=== PATIENT | female | born 1945 | race Caucasian/White ===

== ENCOUNTER 2024-08-22 18:36 | Inpatient (IN) | payer MEDICARE, BC ==
[~2024-08-22] VITALS: Ht 165.1 cm; Wt 93.9 kg
[2024-08-22] MEDS ORDERED: LEVO1CAP4 PO (19:27)
[2024-08-22] MEDS ORDERED: LOSA100T31 PO (19:27)
[2024-08-22] MEDS ORDERED: OMEG-49 PO (19:27)
[2024-08-22] MEDS ORDERED: PRIM50TA27 PO (19:27)
[2024-08-22] MEDS ORDERED: PANT40TA49 PO (19:27)
[2024-08-22] MEDS ORDERED: GLIP5TAB13 PO (19:27)
[2024-08-22] MEDS ORDERED: SIMV-46 PO (19:27)
[2024-08-22] MEDS ORDERED: NITR-84 PO (19:27)
[2024-08-22] MEDS ORDERED: INSU300I SQ (19:27)
[2024-08-22] MEDS ORDERED: ALLO300T2 PO (19:27)
[2024-08-22] MEDS ORDERED: ASPI81TA31 PO (19:27)
[2024-08-22] MEDS ORDERED: SERT50TA PO (19:27)
[2024-08-22] MEDS ORDERED: CHOL2000 PO (19:27)
[2024-08-22] MEDS ORDERED: LEVO200T9 PO (19:27)
[2024-08-22] MEDS ORDERED: MELA3CAP2 PO (19:27)
[2024-08-22] MEDS ORDERED: GALA12TA15 PO (19:27)
[2024-08-22] MEDS ORDERED: DIVA125C5 PO (19:27)
[2024-08-22] MEDS ORDERED: FERR-68 PO (19:27)
[2024-08-22] MEDS ORDERED: METF-440 PO (19:27)
[2024-08-22] MEDS ORDERED: BETA1TAB19 PO (19:27)
[2024-08-22] MEDS ORDERED: FENO145T21 PO (19:27)
[2024-08-22] MEDS ORDERED: RISP0.5T65 PO (19:27)
[2024-08-22] MEDS ORDERED: ASCO500C18 PO (19:27)
[2024-08-22] MEDS ORDERED: LORAZEPAM 2 MG/1 ML VIAL ONE (20:32)
[2024-08-22] MEDS: LORAZEPAM 2 MG/1 ML VIAL IV ONE (20:37)
[2024-08-23] MEDS ORDERED: LORAZEPAM 1 MG TABLET PO PRN (00:15)
[2024-08-23] MEDS ORDERED: ACETAMINOPHEN 325 MG TABLET PO PRN (00:15)
[2024-08-23] MEDS ORDERED: TEMAZEPAM 7.5 MG CAPSULE PO PRN ×2 (00:15)
[2024-08-23] MEDS ORDERED: MAG HYDROX/AL HYDROX/SIMETH 30 ML LIQUID UDC PO PRN (00:15)
[2024-08-23] MEDS ORDERED: MAGNESIUM HYDROXIDE 30 ML LIQUID UDC PO PRN (00:15)
[2024-08-23 00:58] VITALS: BP 156/75; TEMP 97.4; O2SAT 94
[2024-08-23 08:14] VITALS: BP 148/92; TEMP 97.4; O2SAT 94
[2024-08-23] MEDS ORDERED: DEXTROSE 50% 50 ML DISP.SYRIN IV PRN (11:00)
[2024-08-23] MEDS: BLOOD SUGAR DIAGNOSTIC 1 EACH STRIP VI SCH (11:30)
[2024-08-23] MEDS: INSULIN REGULAR, HUMAN 1000 UNIT/10 ML VIAL SQ PRN (11:53)
[2024-08-23] MEDS: BENZTROPINE MESYLATE 0.5 MG TABLET PO SCH (11:55)
[2024-08-23] MEDS: DIVALPROEX SPRINKLE 125 MG CAP.SPRINK PO SCH (11:55)
[2024-08-23] MEDS: risperiDONE 1 MG TABLET PO SCH (12:01)
[2024-08-23] MEDS: FERROUS SULFATE 325 MG TABEC PO SCH (12:01)
[2024-08-23] MEDS ORDERED: risperiDONE 0.5 MG TABLET PO SCH (13:00)
[2024-08-23 13:01] LABS: THYROID STIMULATING HORMONE 5.503 mIU/mL (0.358-3.740)
[2024-08-23 16:14] VITALS: TEMP 98.1; O2SAT 98
[2024-08-23] MEDS ORDERED: LEVOMEFOLATE PO SCH (17:00)
[2024-08-23] MEDS ORDERED: B12 PO SCH (17:00)
[2024-08-23] MEDS ORDERED: DIVALPROEX SPRINKLE 125 MG CAP.SPRINK PO SCH (17:00)
[2024-08-23] MEDS ORDERED: ALGAL OIL PO SCH (17:00)
[2024-08-23] MEDS ORDERED: B6 PO SCH (17:00)
[2024-08-23] MEDS: PRIMIDONE 50 MG TABLET PO SCH (17:25)
[2024-08-23] MEDS: INSULIN GLARGINE,HUM 300 UNITS/3 ML CARTRIDGE SQ SCH (17:28)
[2024-08-23 20:00] VITALS: BP 118/61; TEMP 98; O2SAT 95
[2024-08-23] MEDS ORDERED: SERTRALINE HCL 50 MG TABLET PO SCH (21:00)
[2024-08-23] MEDS: SIMVASTATIN 20 MG TABLET PO SCH (21:16)
[2024-08-23] MEDS: OLANZAPINE 2.5 MG TABLET PO SCH (21:16)
[2024-08-23] MEDS: INSULIN REGULAR, HUMAN 300 UNITS/3 ML VIAL SQ PRN (21:22)
[2024-08-24] MEDS: OLANZAPINE 2.5 MG TABLET PO PRN (01:44)
[2024-08-24] MEDS: PANTOPRAZOLE SODIUM 40 MG TABLET.DR PO SCH (06:53)
[2024-08-24] MEDS: LEVOTHYROXINE SODIUM 200 MCG TABLET PO SCH (06:53)
[2024-08-24 08:12] VITALS: BP 116/62; TEMP 98.1; O2SAT 100
[2024-08-24 08:23] LABS: BASOPHILS # (AUTO) 0.1 K/UL (0.0-0.2); BASOPHILS % (AUTO) 0.8 % (0.0-2.0); EOSINOPHILS # (AUTO) 0.2 K/uL (0.0-0.7); EOSINOPHILS % (AUTO) 1.8 % (0.0-7.0); HEMATOCRIT 37.3 % (31.2-41.9); HEMOGLOBIN 12.3 g/dL (10.9-14.3); LYMPHOCYTES # (AUTO) 1.2 K/uL (0.8-4.8); LYMPHOCYTES % (AUTO) 13.4 % (20.5-51.5); MEAN CORPUSCULAR HEMOGLOBIN 30.3 uug (24.7-32.8); MEAN CORPUSCULAR HGB CONC 33 g/dL (32.3-35.6); MONOCYTES # (AUTO) 0.8 K/uL (0.1-1.30); MONOCYTES % (AUTO) 8.4 % (0.0-11.0); NEUTROPHILS # (AUTO) 6.8 K/uL (1.8-8.9); NEUTROPHILS % (AUTO) 75.6 % (38.5-71.5); PLATELET COUNT (AUTO) 263 K/uL (179-408); RED BLOOD CELL COUNT(AUTO) 4.05 MIL/uL (3.63-4.92); RED CELL DISTRIBUTION WIDTH 14.7 % (12.3-17.7)
[2024-08-24 08:26] LABS: DIFFERENTIAL COMMENT 1
[2024-08-24] MEDS ORDERED: GALANTAMINE HYDROBROMIDE 24 MG PO SCH (09:00)
[2024-08-24] MEDS ORDERED: CHOLECALCIFEROL PO SCH (09:00)
[2024-08-24] MEDS: ASPIRIN 81 MG TAB.CHEW PO SCH (09:13)
[2024-08-24] MEDS: FENOFIBRATE NANOCRYSTALLIZED 145 MG TABLET PO SCH (09:14)
[2024-08-24] MEDS: LOSARTAN POTASSIUM 50 MG TABLET PO SCH (09:15)
[2024-08-24] MEDS: METFORMIN HCL 500 MG TABLET PO SCH (09:16)
[2024-08-24] MEDS: ASCORBIC ACID 500 MG TABLET PO SCH (09:16)
[2024-08-24] MEDS: ALLOPURINOL 300 MG TABLET PO SCH (09:17)
[2024-08-24 09:57] LABS: CALCIUM 9.7 mg/dL (8.5-10.1); CARBON DIOXIDE 25 mmol/L (21-32); CHLORIDE 107 mmol/L (98-107); GLUCOSE 185 mg/dL (74-106); SODIUM SERUM 144 mmol/L (136-145); UREA NITROGEN, BLOOD 34 mg/dL (7-18)
[2024-08-24 09:58] LABS: ALANINE AMINOTRANSFERASE 25 U/L (14-59); ALBUMIN 3.1 g/dL (3.4-5.0); ALKALINE PHOSPHATASE 56 U/L (50-136); ASPARTATE AMINOTRANSFERASE 30 U/L (15-37); BILIRUBIN,TOTAL 0.4 mg/dL (0.2-1.0); CREATININE 1.5 mg/dL (0.6-1.3); TOTAL PROTEIN, SERUM 6.6 g/dL (6.4-8.2)
[2024-08-24 10:03] LABS: POTASSIUM 4.6 mmol/L (3.5-5.1)
[2024-08-24 10:15] LABS: BILIRUBIN,DIRECT 0.1 mg/dL (0.0-0.2); MAGNESIUM 1.8 mg/dL (1.8-2.4); PHOSPHOROUS 3.3 mg/dL (2.5-4.9)
[2024-08-24] MEDS: CHOLECALCIFEROL 1,000 UNIT TABLET PO SCH (12:37)
[2024-08-24 16:08] VITALS: BP 113/58; TEMP 98.3; O2SAT 100
[2024-08-24 20:00] VITALS: BP 106/73; TEMP 98.2; O2SAT 98
[2024-08-24] MEDS: [UNRECOGNIZED DRUG - OTHER] PO SCH (20:41)
[2024-08-24] MEDS: RAZADYNE PO SCH (20:41)
[2024-08-24] MEDS: METANX PO SCH (20:41)
[2024-08-25 08:05] VITALS: BP 133/66; TEMP 98.4; O2SAT 94
[2024-08-25] MEDS: ASPIRIN 81 MG TAB.CHEW PO SCH (09:52)
[2024-08-25 15:58] VITALS: BP 137/72; TEMP 98; O2SAT 96
[2024-08-25 20:00] VITALS: BP 135/60; TEMP 97.8; O2SAT 93
[2024-08-25] MEDS: OLANZAPINE 5 MG TABLET PO SCH (20:49)
[2024-08-26 08:20] LABS: BASOPHILS # (AUTO) 0.1 K/UL (0.0-0.2); BASOPHILS % (AUTO) 0.6 % (0.0-2.0); EOSINOPHILS # (AUTO) 0.2 K/uL (0.0-0.7); EOSINOPHILS % (AUTO) 1.9 % (0.0-7.0); HEMATOCRIT 36.7 % (31.2-41.9); HEMOGLOBIN 12.2 g/dL (10.9-14.3); LYMPHOCYTES # (AUTO) 1.6 K/uL (0.8-4.8); LYMPHOCYTES % (AUTO) 16.3 % (20.5-51.5); MEAN CORPUSCULAR HEMOGLOBIN 30.4 uug (24.7-32.8); MEAN CORPUSCULAR HGB CONC 33 g/dL (32.3-35.6); MEAN CORPUSCULAR VOLUME 91.8 fL (75.5-95.3); MONOCYTES # (AUTO) 0.8 K/uL (0.1-1.30); MONOCYTES % (AUTO) 7.9 % (0.0-11.0); NEUTROPHILS # (AUTO) 7.1 K/uL (1.8-8.9); NEUTROPHILS % (AUTO) 73.3 % (38.5-71.5); PLATELET COUNT (AUTO) 290 K/uL (179-408); RED CELL DISTRIBUTION WIDTH 15.3 % (12.3-17.7); WHITE BLOOD COUNT (AUTO) 9.7 K/uL (3.8-11.8)
[2024-08-26 08:34] LABS: DIFFERENTIAL COMMENT 1
[2024-08-26 08:49] LABS: ALANINE AMINOTRANSFERASE 24 U/L (14-59); ALKALINE PHOSPHATASE 57 U/L (50-136); ASPARTATE AMINOTRANSFERASE 33 U/L (15-37); BILIRUBIN,TOTAL 0.4 mg/dL (0.2-1.0); CALCIUM 9.8 mg/dL (8.5-10.1); CARBON DIOXIDE 27 mmol/L (21-32); CHLORIDE 111 mmol/L (98-107); CREATINE KINASE, TOTAL 152 U/L (26-192); CREATININE 1.3 mg/dL (0.6-1.3); GLUCOSE 85 mg/dL (74-106); MAGNESIUM 1.7 mg/dL (1.8-2.4); PHOSPHOROUS 3.3 mg/dL (2.5-4.9); POTASSIUM 4.1 mmol/L (3.5-5.1); SODIUM SERUM 146 mmol/L (136-145); TOTAL PROTEIN, SERUM 6.4 g/dL (6.4-8.2); UREA NITROGEN, BLOOD 28 mg/dL (7-18)
[2024-08-26 09:19] VITALS: BP_SYST 125; BP_SYST 133; BP_DIAS 64; BP_DIAS 77; TEMP 98; O2SAT 96; O2SAT 98
[2024-08-26] MEDS: DIVALPROEX SPRINKLE 125 MG CAP.SPRINK PO SCH (09:19)
[2024-08-26] MEDS: ALLOPURINOL 100 MG TABLET PO SCH (09:45)
[2024-08-26] MEDS: MAGNESIUM OXIDE 400 MG TABLET PO ONE (10:35)
[2024-08-26 15:28] VITALS: BP 98/50; TEMP 98; O2SAT 96
[2024-08-27 08:08] VITALS: BP 100/50; TEMP 97.6; O2SAT 98
[2024-08-27 16:06] LABS: ALBUMIN 3.1 g/dL (2.9-4.4); ALPHA-1-GLOBULIN 0.3 g/dL (0.0-0.4); ALPHA-2-GLOBULIN 0.8 g/dL (0.4-1.0); GAMMA GLOBULIN 0.9 g/dL (0.4-1.8); M-SPIKE 0.3 g/dL (Not Observed); PROTEIN, TOTAL 6.1 g/dL (6.0-8.5)
[2024-08-27 16:10] VITALS: BP 110/77; TEMP 98.3; O2SAT 100
[2024-08-27] MEDS: risperiDONE 1 MG TABLET PO SCH (17:19)
[2024-08-27 20:00] VITALS: BP 100/51; TEMP 98; O2SAT 92
[2024-08-28 08:06] LABS: PTH, INTACT 10 pg/mL (15-65)
[2024-08-28 08:25] VITALS: BP 105/55; TEMP 98; O2SAT 90
[2024-08-28] MEDS: GLUCERNA SHAKE 237 ML CAN PO SCH (09:30)
[2024-08-28 16:33] VITALS: BP 149/72; TEMP 98.2; O2SAT 96
[2024-08-28 20:36] VITALS: BP 122/48; TEMP 97.8; O2SAT 95
[2024-08-29 08:16] VITALS: BP 120/57; TEMP 97.5; O2SAT 95
[2024-08-29 15:32] VITALS: BP 137/107; TEMP 97.4; O2SAT 95
[2024-08-29 20:21] VITALS: BP 138/53; TEMP 97.2; O2SAT 96
[2024-08-29] MEDS: LORAZEPAM 1 MG TABLET PO PRN (20:55)
[2024-08-30 08:06] VITALS: BP 142/69; TEMP 98.1; O2SAT 100
[2024-08-30] MEDS: risperiDONE 2 MG TABLET PO SCH (12:32)
[2024-08-30 16:00] LABS: THYROID STIMULATING HORMONE 2.522 mIU/mL (0.358-3.740)
[2024-08-30 16:02] VITALS: BP 138/71; TEMP 97.8; O2SAT 100
[2024-08-30 20:00] VITALS: BP 134/60; TEMP 98.4; O2SAT 93
[2024-08-30] MEDS: OLANZAPINE 2.5 MG TABLET PO SCH (20:40)
[2024-08-30] MEDS: INSULIN GLARGINE,HUM 300 UNITS/3 ML CARTRIDGE SQ SCH (20:55)
[2024-08-31 08:03] VITALS: BP 99/59; TEMP 98; O2SAT 96
[2024-08-31 15:17] VITALS: BP 100/50; TEMP 98; O2SAT 96
[2024-08-31 20:00] VITALS: BP 129/71; TEMP 98; O2SAT 94
[2024-09-01 07:25] LABS: BASOPHILS # (AUTO) 0.1 K/UL (0.0-0.2); BASOPHILS % (AUTO) 0.7 % (0.0-2.0); EOSINOPHILS # (AUTO) 0.2 K/uL (0.0-0.7); EOSINOPHILS % (AUTO) 1.9 % (0.0-7.0); HEMATOCRIT 37.2 % (31.2-41.9); HEMOGLOBIN 12.3 g/dL (10.9-14.3); LYMPHOCYTES # (AUTO) 1.5 K/uL (0.8-4.8); LYMPHOCYTES % (AUTO) 18.5 % (20.5-51.5); MEAN CORPUSCULAR HEMOGLOBIN 30.5 uug (24.7-32.8); MEAN CORPUSCULAR HGB CONC 33 g/dL (32.3-35.6); MEAN CORPUSCULAR VOLUME 92.3 fL (75.5-95.3); MONOCYTES # (AUTO) 1.1 K/uL (0.1-1.30); MONOCYTES % (AUTO) 13.2 % (0.0-11.0); NEUTROPHILS # (AUTO) 5.3 K/uL (1.8-8.9); NEUTROPHILS % (AUTO) 65.7 % (38.5-71.5); PLATELET COUNT (AUTO) 288 K/uL (179-408); RED BLOOD CELL COUNT(AUTO) 4.04 MIL/uL (3.63-4.92); RED CELL DISTRIBUTION WIDTH 15.3 % (12.3-17.7); WHITE BLOOD COUNT (AUTO) 8.1 K/uL (3.8-11.8)
[2024-09-01 07:29] LABS: DIFFERENTIAL COMMENT 1
[2024-09-01 07:46] LABS: ALANINE AMINOTRANSFERASE 21 U/L (14-59); ALBUMIN 2.9 g/dL (3.4-5.0); ALKALINE PHOSPHATASE 51 U/L (50-136); ASPARTATE AMINOTRANSFERASE 23 U/L (15-37); BILIRUBIN,TOTAL 0.3 mg/dL (0.2-1.0); CALCIUM 10.2 mg/dL (8.5-10.1); CARBON DIOXIDE 27 mmol/L (21-32); CHLORIDE 109 mmol/L (98-107); CREATININE 1.6 mg/dL (0.6-1.3); GLUCOSE 163 mg/dL (74-106); POTASSIUM 4.8 mmol/L (3.5-5.1); SODIUM SERUM 144 mmol/L (136-145); TOTAL PROTEIN, SERUM 6.4 g/dL (6.4-8.2); UREA NITROGEN, BLOOD 39 mg/dL (7-18); VALPROIC ACID 9 ug/mL (50-100)
[2024-09-01 08:04] VITALS: BP 124/61; TEMP 97.8; O2SAT 100
[2024-09-01 15:23] VITALS: BP 106/55; TEMP 97.6; O2SAT 92
[2024-09-01 20:00] VITALS: BP 123/51; TEMP 97.3; O2SAT 94
[2024-09-02 07:58] LABS: BASOPHILS # (AUTO) 0.1 K/UL (0.0-0.2); BASOPHILS % (AUTO) 0.8 % (0.0-2.0); EOSINOPHILS # (AUTO) 0.1 K/uL (0.0-0.7); EOSINOPHILS % (AUTO) 1.5 % (0.0-7.0); HEMATOCRIT 36.9 % (31.2-41.9); HEMOGLOBIN 12.1 g/dL (10.9-14.3); LYMPHOCYTES # (AUTO) 1.8 K/uL (0.8-4.8); LYMPHOCYTES % (AUTO) 19.2 % (20.5-51.5); MEAN CORPUSCULAR HEMOGLOBIN 30.4 uug (24.7-32.8); MEAN CORPUSCULAR HGB CONC 33 g/dL (32.3-35.6); MEAN CORPUSCULAR VOLUME 92.8 fL (75.5-95.3); MONOCYTES # (AUTO) 1.1 K/uL (0.1-1.30); MONOCYTES % (AUTO) 11.7 % (0.0-11.0); NEUTROPHILS # (AUTO) 6.1 K/uL (1.8-8.9); NEUTROPHILS % (AUTO) 66.8 % (38.5-71.5); PLATELET COUNT (AUTO) 271 K/uL (179-408); RED BLOOD CELL COUNT(AUTO) 3.97 MIL/uL (3.63-4.92); RED CELL DISTRIBUTION WIDTH 15.1 % (12.3-17.7); WHITE BLOOD COUNT (AUTO) 9.2 K/uL (3.8-11.8)
[2024-09-02 07:59] LABS: DIFFERENTIAL COMMENT 1
[2024-09-02 08:00] VITALS: BP 123/50; TEMP 97.6; O2SAT 98
[2024-09-02 08:12] LABS: ALANINE AMINOTRANSFERASE 23 U/L (14-59); ALBUMIN 2.8 g/dL (3.4-5.0); ALKALINE PHOSPHATASE 50 U/L (50-136); ASPARTATE AMINOTRANSFERASE 27 U/L (15-37); BILIRUBIN,DIRECT 0.1 mg/dL (0.0-0.2); BILIRUBIN,TOTAL 0.3 mg/dL (0.2-1.0); CALCIUM 9.8 mg/dL (8.5-10.1); CARBON DIOXIDE 27 mmol/L (21-32); CHLORIDE 108 mmol/L (98-107); CREATINE KINASE, TOTAL 43 U/L (26-192); CREATININE 1.6 mg/dL (0.6-1.3); GLUCOSE 125 mg/dL (74-106); PHOSPHOROUS 3.4 mg/dL (2.5-4.9); POTASSIUM 4.4 mmol/L (3.5-5.1); SODIUM SERUM 144 mmol/L (136-145); TOTAL PROTEIN, SERUM 6.3 g/dL (6.4-8.2); UREA NITROGEN, BLOOD 39 mg/dL (7-18)
[2024-09-02 16:00] VITALS: BP 100/74; TEMP 97.2; O2SAT 97
[2024-09-02 21:13] VITALS: BP 110/82; TEMP 97.5; O2SAT 95
[2024-09-03 08:08] VITALS: BP 133/82; TEMP 97.6; O2SAT 100
[2024-09-03 08:37] VITALS: BP 133/82
== END 2024-09-03 13:16 | DRG 885 ==
LOC: ER 18:36 → GPS 19:38
PROVIDERS: ADMIT Psychiatry & Neurology Psychosomatic Medicine; ATTEND Internal Medicine
DX: F29 Unspecified psychosis not due to a substance or known physiological condition (principal); N18.30 Chronic kidney disease, stage 3 unspecified; G93.41 Metabolic encephalopathy; F03.93 Unspecified dementia, unspecified severity, with mood disturbance; F03.911 Unspecified dementia, unspecified severity, with agitation; F03.94 Unspecified dementia, unspecified severity, with anxiety; E44.0 Moderate protein-calorie malnutrition; E11.42 Type 2 diabetes mellitus with diabetic polyneuropathy; I45.81 Long QT syndrome; Z79.84 Long term (current) use of oral hypoglycemic drugs; Z79.899 Other long term (current) drug therapy; M10.9 Gout, unspecified; Z91.040 Latex allergy status; E78.5 Hyperlipidemia, unspecified; I45.10 Unspecified right bundle-branch block; E66.9 Obesity, unspecified; I12.9 Hypertensive chronic kidney disease with stage 1 through stage 4 chronic kidney disease, or unspecified chronic kidney disease; E11.22 Type 2 diabetes mellitus with diabetic chronic kidney disease; J44.9 Chronic obstructive pulmonary disease, unspecified; E03.9 Hypothyroidism, unspecified; Z79.890 Hormone replacement therapy; Z85.51 Personal history of malignant neoplasm of bladder; Z90.09 Acquired absence of other part of head and neck; Z90.411 Acquired partial absence of pancreas; Z90.12 Acquired absence of left breast and nipple; Z90.2 Acquired absence of lung [part of]; Z90.49 Acquired absence of other specified parts of digestive tract; Z86.73 Personal history of transient ischemic attack (TIA), and cerebral infarction without residual deficits; Z87.891 Personal history of nicotine dependence; Z85.118 Personal history of other malignant neoplasm of bronchus and lung; Z79.4 Long term (current) use of insulin; Z79.82 Long term (current) use of aspirin; Z68.34 Body mass index [BMI] 34.0-34.9, adult
CPT/HCPCS: 36415; 70450; 71045; 80164; 83735; 83921; 83970; 84100; 84155; 84165; 84443; 85025; 93005; J1815; J2060; J8499